=== PATIENT | male | born 2000 | race Caucasian/White ===

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

== ENCOUNTER → 2022-12-01 | Outpatient (CLI) | payer OTHER ==
--- NOTE | 2022-12-01 17:21 | FL ---
EXAMINATION TYPE: FL UGI air DATE OF EXAM: 12/01/2022 COMPARISON: NONE HISTORY: 21-year-old male R11.2, nausea and vomiting TECHNIQUE: A double contrast UGI study is performed. A total of 1 minute 21 seconds of fluoroscopic time was utilized during procedure and 42 images obtained. Total dose area product (DAP) in uGy*m?, mGy*cm? (or similar): 400.3. FINDINGS: The esophagus shows normal motility and emptying into the stomach. There is a small hiatal hernia. Unable to elicit any gastroesophageal reflux during the course of the study. The stomach shows normal distensibility, peristalsis, and mucosal folds. No evidence of any mass or ulcer disease. The duodenal bulb, sweep, and proximal small bowel loops are unremarkable. IMPRESSION: 1. Small sliding hiatal hernia. Unable to elicit any gastroesophageal reflux during the course of the exam. 2. Otherwise, unremarkable upper GI examination.
== END | disposition home or self-care (01) ==
LOC: RADUSWWP 09:58
PROVIDERS: ATTEND Family Medicine
DX: K44.9 Diaphragmatic hernia without obstruction or gangrene (principal); R11.2 Nausea with vomiting, unspecified
CPT/HCPCS: 74246

== ENCOUNTER → 2023-07-11 | Outpatient (CLI) | payer OTHER ==
--- NOTE | 2023-07-11 07:37 | US ---
EXAMINATION TYPE: US gallbladder DATE OF EXAM: 07/11/2023 COMPARISON: 03/15/2017 CLINICAL INDICATION: Male, 22 years old with history of R11.2 NAUSEA AND VOMITING; Abdominal distenti on TECHNIQUE: Multiple sonographic images of the right upper quadrant are obtained. FINDINGS: EXAM MEASUREMENTS: Liver Length: 16.6 cm. Normal less than 15.5 cm. Gallbladder Wall: 0.2 cm CBD: 0.2 cm Right Kidney: 9.9 x 5.3 x 7.0 cm STRETCHER AND DRIER NOTES: Pancreas: Obscured by bowel gas Liver: wnl Gallbladder: ? Not fully distended - patient properly NPO Evidence for sonographic Beavers's sign: No CBD: wnl Right Kidney: wnl IMPRESSION: 1. Mild hepatomegaly
== END | disposition home or self-care (01) ==
LOC: RADUSWWP 06:50
PROVIDERS: ATTEND Family Medicine
DX: R16.0 Hepatomegaly, not elsewhere classified (principal); R11.2 Nausea with vomiting, unspecified; R14.0 Abdominal distension (gaseous)
CPT/HCPCS: 76705